=== PATIENT | male | born 1985 | race Caucasian/White ===

== ENCOUNTER 2017-08-03 00:30 | Emergency (ER) | payer SELFPAY ==
[~2017-08-03] VITALS: Ht 172.7 cm; Wt 104.3 kg
[2017-08-03 00:35] VITALS: Ht 172.7 cm; Wt 104.3 kg
[2017-08-03 08:54] VITALS: BP 124/76
== END 2017-08-03 09:01 | disposition home or self-care (01) ==
LOC: EDBD 00:30 → ED 00:30
DX: R41.82 Altered mental status, unspecified (principal); F10.129 Alcohol abuse with intoxication, unspecified; I10 Essential (primary) hypertension
CPT/HCPCS: J2405